=== PATIENT | female | born 1945 | race Asian ===

== ENCOUNTER 2016-08-20 08:13 | Day surgery (SDC) | payer MEDICARE, OTHER ==
[~2016-08-20] VITALS: Ht 157.5 cm; Wt 47.6 kg
[2016-08-20 09:50] VITALS: BP 98/50
== END 2016-08-20 10:18 | disposition home or self-care (01) ==
LOC: ENDO 08:13 → ORM 10:30 → ENDO 10:30 → ORM 10:45
PROVIDERS: ATTEND Internal Medicine Gastroenterology
PROC: 0DB68ZX Excision of Stomach, Via Natural or Artificial Opening Endoscopic, Diagnostic (ICD-10-PCS; principal; 2016-08-20)
PROC: 0DB98ZX Excision of Duodenum, Via Natural or Artificial Opening Endoscopic, Diagnostic (ICD-10-PCS; 2016-08-20)
DX: R10.12 Left upper quadrant pain (principal); R10.32 Left lower quadrant pain; K21.9 Gastro-esophageal reflux disease without esophagitis; R63.4 Abnormal weight loss; K29.50 Unspecified chronic gastritis without bleeding; K57.30 Diverticulosis of large intestine without perforation or abscess without bleeding; K64.8 Other hemorrhoids; D12.6 Benign neoplasm of colon, unspecified